=== PATIENT | male | born 1980 ===

== ENCOUNTER 2017-03-03 08:43 | Emergency (ER) | payer OTHER ==
[2017-03-03 08:47] VITALS: BP 132/90; PULSE 77; TEMP 97.4; O2SAT 98
[2017-03-03 08:48] VITALS: BMI 28.8
[2017-03-03 09:36] VITALS: RESP 16
--- NOTE | 2017-03-03 09:54 | ED PDOC ---
HPI: Back History Per: Patient History/Exam Limitations: no limitations Onset/Duration Of Symptoms: Days Quality Of Discomfort: Sharp, Burning Severity: Moderate Previous Symptoms: None Associated Symptoms: None Exacerbating Factor(s): Movement Additional Complaint(s): CC: back pain HPI: 36 y/o man w/ no pmh presents to the ED with back pain. 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 The patient denies saddle paresthesia, lower extremity weakness, urinary retention/incontinence, or bowel incontinence. The patient denies headaches, chest pain, SOB, abdominal pain, nausea, vomiting, diarrhea, dysuria, or fever. ROS: 12 points assessed and negative unless otherwise reported in HPI allergies: NKDA PMH: none PMD: none PSH: none SOC: denies smoking, alcohol, and drugs - Risk Factors AAA Risk Factors: Neg: Older Than 49 Years Of Age, Hypertension, Connective Tissue Disease, Marfan's Syndrome, Marielena-Danlos Syndrome, Prior AAA, 1st Degree Relative/s With AAA <Bart Kebede - Last Filed: 03/03/17 10:39> <Ramno Jimenez Last Filed: 03/03/17 10:50> Time Seen by Provider: 03/03/17 09:05 Chief Complaint (Nursing): Back Pain Past Medical History Reviewed: Historical Data, Nursing Documentation, Vital Signs Vital Signs: Last Vital Signs Temp 97.4 F L 03/03/17 08:47 Pulse 77 03/03/17 08:47 Resp 03/03/17 09:30 BP 132/90 03/03/17 08:47 Pulse Ox 98 03/03/17 08:47 - Medical History PMH: No Chronic Diseases - Family History Family History: States: Unknown Family Hx <Bart Kebede - Last Filed: 03/03/17 10:39> Vital Signs: Last Vital Signs Temp 97.4 F L 03/03/17 08:47 Pulse 77 03/03/17 08:47 Resp 03/03/17 09:30 BP 132/90 03/03/17 08:47 Pulse Ox 98 03/03/17 10:46 <Ramon Jimenez Last Filed: 03/03/17 10:50> - Home Medications Home Medications: Ambulatory Orders Medication Instructions Recorded Naproxen [Naprosyn] 500 mg PO Q8 #30 tab 03/03/17 - Allergies Allergies/Adverse Reactions: Allergies Allergy/AdvReac Type Severity Reaction Status Date / Time No Known Allergies Allergy Verified 03/03/17 08:59 Supervising Attending Note - Supervising Attending Note The Documented history was done by the: Physician Director Transition The documented physical exam was done by the: Physician Director Transition The documented procedures were done by the: Physician Director Transition - Attestation: I have personally seen and examined this patient.: Yes I have fully participated in the care of the patient.: Yes I have reviewed all pertinent clinical information: Yes - Notes: Notes:: back pain <Chet Jimenezya M - Last Filed: 03/03/17 10:50> Review of Systems ROS Statement: Except As Marked, All Systems Reviewed And Found Negative Constitutional: Negative for: Fever, Sweats, Weakness Cardiovascular: Negative for: Chest Pain, Palpitations, Light Headedness Respiratory: Negative for: Cough, Shortness of Breath, SOB with Exertion, Wheezing Gastrointestinal: Negative for: Nausea, Vomiting, Abdominal Pain, Diarrhea, Constipation Genitourinary Male: Negative for: Dysuria Neurological: Negative for: Weakness, Headache, Dizziness <Bart Kebede - Last Filed: 03/03/17 10:39> Physical Exam - Reviewed Nursing Documentation Reviewed: Yes Vital Signs Reviewed: Yes - Physical Exam Appears: Positive for: No Acute Distress Head Exam: Positive for: ATRAUMATIC, NORMAL INSPECTION, NORMOCEPHALIC Skin: Positive for: Normal Color, Warm, Dry Neck: Positive for: Normal, Painless ROM, Supple Cardiovascular/Chest: Positive for: Regular Rate, Rhythm, Chest Non Tender. Negative for: Bradycardia, Tachycardia Respiratory: Positive for: Normal Breath Sounds. Negative for: Accessory Muscle Use, Crackles, Rales, Rhonchi, Wheezing, Respiratory Distress Pulses-Carotid (L): 2+ Pulses-Carotid (R): 2+ Pulses-Dorsalis Pedis (L): 2+ Pulses-Dorsalis Pedis (R): 2+ Pulses-Post. Tibialis (L): 2+ Pulses-Post. Tibialis (R): 2+ Pulses-Radial (L): 2+ Pulses-Radial (R): 2+ Gastrointestinal/Abdominal: Positive for: Normal Exam, Bowel Sounds, Soft. Negative for: Tenderness Back: Positive for: Muscle Spasm, Other (straight leg test negative). Negative for: L CVA Tenderness, R CVA Tenderness, Vertebral Tenderness Extremity: Positive for: Normal ROM. Negative for: Tenderness Neurologic/Psych: Positive for: Alert, Oriented, Gait. Negative for: Motor/ Sensory Deficits <Bart Kebede - Last Filed: 03/03/17 10:39> - Physical Exam Back: Positive for: Other (straight leg test negative; tender mild lower across) . Negative for: L CVA Tenderness, R CVA Tenderness <Ramon Jimenez - Last Filed: 03/03/17 10:50> - ECG O2 Sat by Pulse Oximetry: 98 <Bart Kebede - Last Filed: 03/03/17 10:39> - Progress ED Course And Treament: 1050: Stable. AAOx3. Pain free. Tolerated PO. Fu outpt. Ambulated with no issues. <Ramon Jimenez - Last Filed: 03/03/17 10:50> Medical Decision Making Medical Decision Makin36 y/o man w/ no pmh presents to the ED with back pain XR lumbar spine: no acute fracture, dislocation, or disease process; no arthritis seen at disc spaces or at SI joints motrin 600 mg PO re-evaluate 10:44 - patient feels better - counseled patient on better lifting technique and maintaining activity, avoiding prolonged bed rest Dispo: DC home, give script for naprosyn <Bart Kebede - Last Filed: 03/03/17 10:39> Disposition Discussed With : Ramon Jimenez Counseled Patient/Family Regarding: Studies Performed, Diagnosis, Need For Followup, Rx Given - Disposition Disposition: Routine/Home Disposition Time: 10:46 - POA Present On Arrival: None <Bart Kebede - Last Filed: 03/03/17 10:39> <Ramon Jimenez - Last Filed: 03/03/17 10:50> - Clinical Impression Clinical Impression: Low back pain - Disposition Referrals: [facility] [Outside] - 03/04/17 Condition: IMPROVED Additional Instructions: Take medication as prescribed. Follow up with PMD in 2-3 days. Prescriptions: Naproxen [Naprosyn] 500 mg PO Q8 #30 tab Instructions: Back Pain (ED), Back Exercises (ED) Forms: [employer] (Bermudian) Print Language: PERSIAN
--- NOTE | 2017-03-03 13:49 | RAD ---
PROCEDURE: Radiographs of the Lumbar Spine. HISTORY: low back pain No antecedent history of trauma. COMPARISON: No prior. FINDINGS: BONES: Normal alignment. No listhesis. No fracture. DISC SPACES: Unremarkable. OTHER FINDINGS: None. IMPRESSION: Unremarkable radiographs of the lumbar spine.
== END 2017-03-03 10:49 | disposition home or self-care (01) ==
LOC: H.ER 08:43
DX: M54.5 Low back pain (principal); I10 Essential (primary) hypertension